=== PATIENT | female | born 1995 | race Caucasian/White ===

== ENCOUNTER 2017-05-09 08:54 | Emergency (ER) | payer BC, SELFPAY ==
[~2017-05-09] VITALS: Ht 162.6 cm; Wt 106.1 kg
[~2017-05-09 08:54] MED LIST: ALBUTEROL SULF8.5 GM INH; BENADRYL25 MG PO; DILAUDID4 MG PO; IBUPROFEN800 MG PO; MIRALAX17 GM PO; SKYLA1 EACH IY; SUMATRIPTAN SUC25 MG PO; TOPIRAMATE50 MG PO
[2017-05-09] MEDS ORDERED: FLUOXETINE HCL20 MG PO (09:31)
[2017-05-09] MEDS ORDERED: PROMETHAZINE HC25 M1 PO (09:31)
[2017-05-09] MEDS ORDERED: AMITRIPTYLINE H25 MG PO (09:31)
--- NOTE | 2017-05-10 15:46 | EKG ---
[facility] [address] [facility] [place] [address] Signed Supraventricular tachycardia Nonspecific ST abnormality Abnormal QRS-T angle, consider primary T wave abnormality Abnormal ECG No previous ECGs available Confirmed by ARAM CARDOSO MD ([id number]) on 05/10/2017 3:46:37 PM Electronically Signed By: ARAM CARDOSO MD 05/10/17 1546 PATIENT NAME: GINO AVENDAÑO Electrocardiogram DATE OF : [birth year] PHYSICIAN: ARAM CARDOSO MD REPORT #: [id number] REPORT IS CONFIDENTIAL AND NOT TO BE RELEASED WITHOUT AUTHORIZATION
--- NOTE | 2017-05-10 15:46 | EKG ---
[facility] [address] [facility] [place] [address] Signed Sinus tachycardia Incomplete right bundle branch block Borderline ECG No previous ECGs available Confirmed by ARAM CARDOSO MD ([id number]) on 05/10/2017 3:46:42 PM Electronically Signed By: ARAM CARDOSO MD 05/10/17 1546 PATIENT NAME: GINO AVENDAÑO Electrocardiogram DATE OF : [birth year] PHYSICIAN: ARAM CARDOSO MD REPORT #: [id number] REPORT IS CONFIDENTIAL AND NOT TO BE RELEASED WITHOUT AUTHORIZATION
[2017-11-02] MEDS ORDERED: TRAMADOL HCL50 MG PO (19:59)
== END 2017-05-09 10:50 | disposition home or self-care (01) ==
LOC: ED 08:54
DX: I47.1 Supraventricular tachycardia (principal); J45.909 Unspecified asthma, uncomplicated; Z90.49 Acquired absence of other specified parts of digestive tract; Z88.2 Allergy status to sulfonamides; Z88.5 Allergy status to narcotic agent; Z79.899 Other long term (current) drug therapy
CPT/HCPCS: 80053; 83735; 84443; 85025; 93005; 93010; 96361; 96374; 99284; J0153; J7040

== ENCOUNTER 2017-05-20 14:39 | Emergency (ER) | payer BC, SELFPAY ==
[~2017-05-20] VITALS: Ht 162.6 cm; Wt 106.1 kg
[~2017-05-20 14:39] MED LIST changes: +AMITRIPTYLINE H25 MG PO; +FLUOXETINE HCL20 MG PO; +PROMETHAZINE HC25 M1 PO
--- NOTE | 2017-05-21 18:24 | EKG ---
[facility] [address] [facility] [place] [address] Signed Sinus tachycardia Cannot rule out Anterior infarct , age undetermined Abnormal ECG When compared with ECG of 09-MAY-2017 09:36, Incomplete right bundle branch block is no longer present Minimal criteria for Anterior infarct are now present Confirmed by ARAM CARDOSO MD ([id number]) on 05/21/2017 6:24:04 PM Electronically Signed By: ARAM CARDOSO MD 05/21/17 1824 PATIENT NAME: GINO AVENDAÑO Electrocardiogram DATE OF : [birth year] PHYSICIAN: ARAM CARDOSO MD REPORT #: [id number] REPORT IS CONFIDENTIAL AND NOT TO BE RELEASED WITHOUT AUTHORIZATION
[2017-11-02] MEDS ORDERED: TRAMADOL HCL50 MG PO (19:59)
== END 2017-05-20 17:30 | disposition home or self-care (01) ==
LOC: ED 14:39
DX: I47.1 Supraventricular tachycardia (principal); J45.909 Unspecified asthma, uncomplicated; F32.9 Major depressive disorder, single episode, unspecified; Z88.2 Allergy status to sulfonamides; Z88.5 Allergy status to narcotic agent; Z79.899 Other long term (current) drug therapy; Z79.01 Long term (current) use of anticoagulants
CPT/HCPCS: 93005; 93010; 99283

== ENCOUNTER 2017-06-05 12:48 | Emergency (ER) | payer BC, SELFPAY ==
[~2017-06-05] VITALS: Ht 162.6 cm; Wt 108.9 kg
--- NOTE | 2017-06-05 20:37 | EKG ---
[facility] [address] [facility] [place] [address] Signed Normal sinus rhythm Normal ECG When compared with ECG of 20-MAY-2017 15:05, Minimal criteria for Anterior infarct are no longer present Confirmed by ARAM CARDOSO MD ([id number]) on 06/05/2017 8:37:42 PM Electronically Signed By: ARAM CARDOSO MD 06/05/17 2037 PATIENT NAME: GINO AVENDAÑO Electrocardiogram DATE OF : [birth year] PHYSICIAN: ARAM CARDOSO MD REPORT #: [id number] REPORT IS CONFIDENTIAL AND NOT TO BE RELEASED WITHOUT AUTHORIZATION
--- NOTE | 2017-06-05 20:37 | EKG ---
[facility] [address] [facility] [place] [address] Signed Supraventricular tachycardia Rightward axis Nonspecific ST abnormality Abnormal ECG When compared with ECG of 20-MAY-2017 15:05, Vent. rate has increased BY 75 BPM Minimal criteria for Anterior infarct are no longer present Non-specific change in ST segment in Inferior leads ST now depressed in Lateral leads Confirmed by ARAM CARDOSO MD ([id number]) on 06/05/2017 8:37:37 PM Electronically Signed By: ARAM CARDOSO MD 06/05/172036 PATIENT NAME: GINO AVENDAÑO Electrocardiogram DATE OF : [birth year] PHYSICIAN: ARAM CARDOSO MD REPORT #: [id number] REPORT IS CONFIDENTIAL AND NOT TO BE RELEASED WITHOUT AUTHORIZATION
[2017-11-02] MEDS ORDERED: TRAMADOL HCL50 MG PO (19:59)
== END 2017-06-05 13:34 | disposition home or self-care (01) ==
LOC: ED 12:48
DX: I47.1 Supraventricular tachycardia (principal); J45.909 Unspecified asthma, uncomplicated; F32.9 Major depressive disorder, single episode, unspecified; Z90.49 Acquired absence of other specified parts of digestive tract; Z88.2 Allergy status to sulfonamides; Z88.5 Allergy status to narcotic agent; Z88.8 Allergy status to other drugs, medicaments and biological substances; Z79.899 Other long term (current) drug therapy
CPT/HCPCS: 93005; 93010; 96374; 96375; 99284; J0153

== ENCOUNTER 2017-07-25 22:19 | Emergency (ER) | payer BC, OTHER ==
[~2017-07-25] VITALS: Ht 162.6 cm; Wt 108.9 kg
--- NOTE | 2017-07-26 | EKG ---
[facility] [address] [facility] [place] [address] Signed Normal sinus rhythm Incomplete right bundle branch block Cannot rule out Anterior infarct , age undetermined Abnormal ECG When compared with ECG of 05-JUN-2017 13:11, No significant change was found Confirmed by ARAM CARDOSO MD ([id number]) on 07/26/2017 12:00:40 AM Electronically Signed By: ARAM CARDOSO MD 07/26/17 0000 PATIENT NAME: GINO AVENDAÑO Electrocardiogram DATE OF : [birth year] PHYSICIAN: ARAM CARDOSO MD REPORT #: [id number] REPORT IS CONFIDENTIAL AND NOT TO BE RELEASED WITHOUT AUTHORIZATION
[2017-07-26] MEDS ORDERED: IBUPROFEN600 MG PO (00:52)
[2017-11-02] MEDS ORDERED: TRAMADOL HCL50 MG PO (19:59)
== END 2017-07-26 01:35 | disposition home or self-care (01) ==
LOC: ED 22:19
DX: I31.9 Disease of pericardium, unspecified (principal); J45.909 Unspecified asthma, uncomplicated; F32.9 Major depressive disorder, single episode, unspecified; Z90.49 Acquired absence of other specified parts of digestive tract; Z88.0 Allergy status to penicillin; Z88.2 Allergy status to sulfonamides; Z88.5 Allergy status to narcotic agent; Z88.8 Allergy status to other drugs, medicaments and biological substances; Z79.899 Other long term (current) drug therapy
CPT/HCPCS: 71010; 80053; 84484; 85025; 85379; 93005; 93010; 96374; 96375; 99284; J1170; J1885; J2405; J2550

== ENCOUNTER → 2017-11-02 | Emergency (ER) | payer BC ==
[~2017-11-02] VITALS: Ht 162.6 cm; Wt 108.9 kg
[~2017-11-02] MED LIST changes: +IBUPROFEN600 MG PO; +TRAMADOL HCL50 MG PO
== END ==
LOC: ED 15:54
PROC: 3E0R3GC Introduction of Other Therapeutic Substance into Spinal Canal, Percutaneous Approach (ICD-10-PCS; principal; 2017-11-02)
DX: R10.9 Unspecified abdominal pain (principal); Z90.49 Acquired absence of other specified parts of digestive tract; Z98.890 Other specified postprocedural states; Z88.0 Allergy status to penicillin; Z88.5 Allergy status to narcotic agent; Z88.2 Allergy status to sulfonamides; Z88.8 Allergy status to other drugs, medicaments and biological substances; Z79.899 Other long term (current) drug therapy
CPT/HCPCS: 36415; 62273; 74176; 80053; 81001; 82150; 83690; 84703; 85025; 96361; 96374; 96375; 96376; 99284; J1170; J1885; J2405; J2550; J7030